=== PATIENT | female | born 1930 | race Caucasian/White ===

== ENCOUNTER 2016-08-11 12:26 | Emergency (ER) | payer MEDICARE ==
[~2016-08-11 12:26] MED LIST: ASPIRIN PO; CALTRA600D PO; CO Q-10 PO; DITROXL5 PO; EYLEA IM; FOSAMAX70 MG PO; LEVOTHYROXIN125 MCG PO; LEVOTHYROXIN150 MCG PO; LIPITOR40 PO; LOP25 PO; MAGOX4 PO; MIRALAXPKT PO; MOBIC7.5 PO; NORV5 PO; SUPER B COMP OR; SYSTANE OPH; VITAMIN B PO
[2016-08-11 12:53] LABS: BASOPHILS 0.3 %; BASOPHILS ABSOLUTE 0.02 10/3/uL (0.0-0.16); EOSINOPHILS 2.7 %; EOSINOPHILS ABSOLUTE 0.17 10/3/uL (0.0-0.53); ER CBC TAT 0 Hrs 07 Mins; HEMATOCRIT 28.2 % (36.0-48.0); HEMOGLOBIN 9.3 g/dL (12.0-16.0); IMMATURE GRANULOCYTES 0.2 %; IMMATURE GRANULOCYTES ABSOLUTE 0.01 10/3/uL (0.0-0.11); LYMPHOCYTES 16.4 %; LYMPHOCYTES ABSOLUTE 1.02 10/3/uL (0.67-4.30); MANUAL DIFF NO %; MEAN CORPUSCULAR HEMOGLOB 30.2 pg (26.0-34.0); MEAN CORPUSCULAR VOLUME 91.6 fL (80-100); MEAN PLATELET VOLUME 9.9 fL (9.2-13.0); MONOCYTES 4.2 %; MONOCYTES ABSOLUTE 0.26 10/3/uL (0.21-1.20); NEUTROPHILS 76.2 %; NEUTROPHILS ABSOLUTE 4.74 10/3/uL (2.02-8.40); PLATELET COUNT 187 10/3/uL (150-400); RBC DISTRIBUTION WIDTH 14.9 % (12.0-16.0); RED CELL COUNT 3.08 10/6/uL (4.0-5.6); WHITE BLOOD CELLS 6.2 10/3/uL (4.5-10.5)
[2016-08-11 13:00] LABS: INTERNATIONAL NORMAL RATI 2.8 UNITS (-); PARTIAL THROMBO TIME 42.8 SEC (22.5-37.2); PROTIME (NOT ORD) 29.3 SEC (12.0-14.5)
[2016-08-11 13:11] LABS: BUN (BLOOD UREA NITROGEN) 14 MG/DL (6-23); CALCIUM, SERUM 8.9 MG/DL (8.5-10.4); CHEST PAIN PROFILE TAT 0 Hrs 25 Mins; CHLORIDE, SERUM 104 MMOL/L (96-112); CO2 (CARBON DIOXIDE) 27 MMOL/L (24-34); CREATININE 0.57 MG/DL (0.55-1.02); GFR AFRICAN AMERICAN 97 ML/MIN (>=60); GFR NON AFRICAN AMERICAN 84 ML/MIN (>=60); GLUCOSE, SERUM 114 MG/DL (60-99); POTASSIUM, SERUM 4.3 MMOL/L (3.5-5.3); SODIUM, SERUM 138 MMOL/L (135-148); TROPONIN I <0.02 NG/ML (<0.05)
[2016-08-11 14:58] LABS: ASCORBIC ACID (UR NOT ORDER) 20 (NEG); BILIRUBIN, URINE NEGATIVE (NEG); ER URINALYSIS TAT 0 Hrs 08 Mins; KETONE, URINE NEGATIVE (NEG); LEUKOCYTE ESTERASE(NOT OR SMALL (NEG); NITRITE (URINE) POS (NEG); WBC (NOT ORDERED) (RFLEX) 4 (0-5)
== END 2016-08-11 15:43 | disposition home or self-care (01) ==
LOC: ER 12:26
PROVIDERS: Hospitalist
DX: I48.0 Paroxysmal atrial fibrillation (principal); R00.1 Bradycardia, unspecified; T50.905A Adverse effect of unspecified drugs, medicaments and biological substances, initial encounter; E03.9 Hypothyroidism, unspecified; Z91.14 Patient's other noncompliance with medication regimen; I10 Essential (primary) hypertension; Z88.2 Allergy status to sulfonamides; Z79.899 Other long term (current) drug therapy
CPT/HCPCS: 71020; 80048; 81001; 83735; 84484; 85025; 85610; 85730; 87077; 87086; 87186; 93005; 99285

== ENCOUNTER 2016-08-29 01:33 | Inpatient (IN) | payer MEDICARE ==
--- NOTE | ~2016-08-29 | DS ---
Discharge Summary [facility] [address] [place]. [address] NAME: SADIE SHRESTHA : 28 STATUS : DIS IN PAT#: [id number] AGE: 86 ADM/REG DATE : 08/29/16 MR#: [id number] REPORT SERV DATE: 09/05/16 DICTATED BY: DATE: REPORT STATUS : Draft TRANSCRIBED BY: MODL DATE: 09/04/16 ADMISSION DATE: 08/29/2016 DISCHARGE DATE: 09/04/2016 The patient was admitted to the [facility]. CONSULTANTS: Included Dr. Colorado of Gastroenterology and Dr. Rodriguez of Cardiology. DISCHARGE DIAGNOSES: 1. Acute blood loss anemia at admission-status post two units of packed red blood cells. 2. GI bleed due to ischemic colitis. 3. Recently diagnosed atrial fibrillation with rapid ventricular response at admission-now rate controlled. To resume anticoagulation in one week. 4. Acute congestive heart failure exacerbation, diastolic. Also, a recent diagnosis. Improved with initiation of Lasix and lisinopril. 5. Hypoxemic respiratory failure-acute, due to acute congestive heart failure exacerbation. Resolved. 6. Hypothyroidism-with recent medication noncompliance. TSH improving to 7.2 with normal free T4 presently. 7. Chronic constipation. 8. History of breast cancer in 2002. 9. Possible obstructive sleep apnea-for outpatient sleep study. 10.Demand related ischemia-no acute myocardial infarction. 11.Osteoporosis. 12.Osteoarthritis. IMAGING AND DIAGNOSTICS: 1. Portable chest x-ray, 08/29/2016, for shortness of breath shows mild vascular congestion with patchy infiltrates likely representing asymmetric edema. 2. Portable chest x-ray, 08/30/2016, shows asymmetric pulmonary edema. 3. Echocardiogram 08/30/2016, showing ejection fraction 40%, mild diastolic dysfunction, elevated right-sided heart pressures. 4. Mesenteric Doppler 09/01/2016, negative for mesenteric stenosis. 5. PA lateral chest x-ray, 09/03/2016, no acute cardiopulmonary process. PROCEDURES: Included EGD and colonoscopy on 08/31/[address] Maikel Colorado demonstrating patchy inflammation throughout the colon and cecum. Biopsies obtained with all pathology pertinent for ischemic colitis and no evidence of malignancy or viral enteritis. PERTINENT LABS: Blood gas with pH 7.45, pCO2 37, PO2 53, oxygen saturation 84% on room air. Creatinine normal at 0.5 throughout the admission. Electrolytes normal. Liver enzymes normal. LDH mildly elevated at 282. Iron 61, iron binding capacity 453, ferritin 18, B12 365, troponin initially 0.68. TSH 7.03 with free T4 1.01. BNP values ranging from 224-315, lactate 1.2. Serum protein electrophoresis is normal. Initial white blood cell count 7.2, as high as 12.3 during the admission and discharge value of 7.5. Initial hemoglobin 7.2, 9.5 at discharge. Platelet count normal. Coagulation studies with admission INR of 1.7 and Discharge Summary [facility] [address] [place]. [address] NAME: SADIE SHRESTHA : 29 STATUS : DIS IN PAT#: [id number] AGE: 86 ADM/REG DATE : 08/29/16 MR#: [id number] REPORT SERV DATE: 09/05/16 DICTATED BY: DATE: REPORT STATUS : Draft TRANSCRIBED BY: MODL DATE: 09/04/16 discharge INR of 1.4-off Coumadin currently. CMV antibodies pending at the time of discharge. Urinalysis was negative. Blood cultures x2 showed no growth. BRIEF HISTORY: For full details, please see the previously dictated history of present illness by Dilan Gibbs M.D. This is an 86-year-old white female, who presented with shortness of breath. For about a month, had been feeling weak and pale in the outpatient setting with a chief complaint of shortness of breath. She had been seen by her primary care provider, as well as bank consultant for this, with recent diagnoses of atrial fibrillation, and congestive heart failure. Also of note, her had recently and she had not been taking her medications as prescribed. She was being treated in the outpatient setting for uncontrolled hypothyroidism. In the emergency department, was noted to be newly anemic with a hemoglobin of 7.2, and heme-positive stools. She was admitted to the Hospitalist Service for further evaluation. HOSPITAL COURSE: For full details, please also reference interim summary by Dr. Eamon Osei for dates of service 08/29/2016 through 09/01/2016. The patient was admitted with acute hypoxemic respiratory failure due to acute exacerbation of diastolic dysfunction, and demand ischemia felt secondary to underlying anemia. Her symptoms improved with 2 units of packed red blood cells. She was seen and evaluated by Cardiology and Gastroenterology. She was placed on a higher dose of Cardizem which brought her rate into control. Her Coumadin was held and she underwent EGD and colonoscopy as well as mesenteric Doppler this admission. Pertinent findings included ischemic colitis by pathology. She was transferred to [address] [place] [address] on the afternoon of 09/01/2016, where she continued to do well through the weekend, with no evidence of recurrent GI bleeding or decline in hemoglobin. Gastroenterology recommended holding her Coumadin for one week before restarting-and this will be due to resume on 09/09/2016. The patient did have some recurrence of shortness of breath while on [address] [place] [address], with evidence of crackles on examination and some desaturations to 85% on room air. She also endorsed orthopnea and paroxysmal nocturnal dyspnea at that time. Two-view chest x-ray was negative, but BNP was mildly elevated and she was placed on diuretics with dramatic improvement in her symptoms. The patient is being re-evaluated today for home oxygen requirements and home oxygen will be initiated at discharge if needed. The patient will need close outpatient followup with her bank consultant, Dr. Rodriguez regarding atrial fibrillation, diastolic congestive heart failure, and multiple new medications at discharge. Coumadin is on hold until 09/09/2016 as noted, then will be resumed at 2.5 mg p.o. daily and patient will need to follow up at the [facility] on 09/15/2016 for PT and INR. Her family will follow up with primary care provider, Dr. Zachariah Roper, in 1-2 weeks and will seek a referral for an outpatient sleep study given possible sleep apnea observed during the hospitalization. The patient also will follow up with Dr. Rodriguez in 2-4 weeks. She is instructed to adhere to a 2 g sodium restricted, 2000 mL fluid restricted diet at discharge, and home health is being arranged for disease management and medication management. Discharge Summary [address] [place]. [address] NAME: SADIE SHRESTHA : 28 STATUS : DIS IN PAT#: [id number] AGE: 86 ADM/REG DATE : 08/29/16 MR#: [id number] REPORT SERV DATE: 09/05/16 DICTATED BY: DATE: REPORT STATUS : Draft TRANSCRIBED BY: ETHAN DATE: 09/04/16 DISCHARGE MEDICATIONS: Include: 1. Cardizem CD 240 mg p.o. daily. 2. Colace 100 mg p.o. twice a day. 3. Lisinopril 2.5 mg p.o. daily. 4. MiraLAX one packet p.o. daily. 5. Coumadin 2.5 mg p.o. q.a.m., resume on 09/09/2016, with PT/INR on 09/15/2016. 6. Forteo 20 mcg subcu at bedtime. 7. Keylea injections administered by Ophthalmology. 8. B complex vitamin 1 tablet p.o. daily. 9. Magnesium 1 tablet p.o. daily. 10.Vitamin D3, 1 tablet p.o. daily. 11.Probiotic 1 cap p.o. daily. 12.Potassium-1 tab p.o. daily. 13.Tylenol 500 mg p.o. daily as needed. 14.CoQ10 1 cap p.o. daily. 15.Lasix 20 mg p.o. daily. 16.Prescriptions were provided for lisinopril, Lasix, and Cardizem CD. 17. 18.Thirty five minutes was spent in completion of the discharge. LAKEISHA/ETHAN Carlos Conn M.D. / [id number] CC: Carlos Conn M.D.
--- NOTE | ~2016-08-29 | HP ---
History And Physical [facility] [address] [place]. [address] NAME: SADIE SHRESTHA : 29 STATUS : ADM IN [facility]#: [id number] AGE: 86 ADM/REG DATE : 08/29/16 MR#: [id number] REPORT SERV DATE: 08/29/16 DICTATED BY: BENIGNO LOPEZ DATE: 08/29/16 REPORT STATUS : Draft TRANSCRIBED BY: MODL DATE: 08/29/16 DATE OF ADMISSION: 08/29/2016 CHIEF COMPLAINT: An 86-year-old female, presenting with shortness of breath. HISTORY OF PRESENT ILLNESS: The patient's history was obtained through careful interview with patient and daughter, coupled with review of [facility] and [facility] medical records. The patient, for about a month now, has been feeling weak and ill. Her main complaint has been shortness of breath. But over the last few weeks, the shortness of breath has become quite severe. She describes dyspnea on exertion and in fact, she has now become just overtly short of breath and winded just trying to talk. She describes orthopnea, difficulty breathing at night. She has noticed no lower extremity edema, but has had a lot of cramping in her legs. She describes lightheadedness, feeling "trembly." She has had a cough productive of a slight sputum that she swallows. She often develops a chest discomfort and it has progressed over these last few days. It is a heavy pushing quality, 7 to 8/10 severity, without radiation, associated with shortness of breath, and may be exacerbated by exertion. She has noticed no melena, no bright red blood per rectum. She has noticed some slight discoloration in her urine with hematuria. She has had some nausea, but no vomiting. She has had a poor appetite. No abdominal pain. REVIEW OF SYSTEMS: Otherwise, a 14-point review of systems was obtained was negative. PAST MEDICAL HISTORY: 1. Atrial fibrillation, followed by Dr. Reagan Rodriguez. 2. Left bundle-branch block. 3. Hypertension. 4. Hypothyroidism. 5. Hepatitis A. 6. Right breast cancer in 2002, status post surgical resection. PAST SURGICAL HISTORY: 1. Appendectomy. 2. Right breast lumpectomy. 3. Hysterectomy. 4. Bladder lift. 5. Bilateral knee operations. ALLERGIES: SULFA. History And Physical [facility] [id number] [place]. [address] NAME: SADIE SHRESTHA : 29 STATUS : ADM IN PAT#: [id number] AGE: 86 ADM/REG DATE : 08/29/16 MR#: [id number] REPORT SERV DATE: 08/29/16 DICTATED BY: BENIGNO LOPEZ DATE: 08/29/16 REPORT STATUS : Draft TRANSCRIBED BY: ETHAN DATE: 08/29/16 SOCIAL HISTORY: Quit smoking. Drinks occasional alcohol. She became a just six weeks ago when her of 66 years , and has been suffering from quite a bit of grief. The patient lives in [place], [place]. Has supportive daughter at bedside. FAMILY HISTORY: Mother with heart disease. CURRENT MEDICATIONS: Include, Tylenol, vitamin B complex, diltiazem extended release 120 mg every morning, Synthroid 75 mcg p.o. daily, Forteo eye drops, magnesium, vitamin D, probiotics, potassium, coenzyme Q10, and Coumadin 2.5 mg p.o. daily. PHYSICAL EXAMINATION: VITAL SIGNS: Temperature 97.8, pulse 129, blood pressure 139/81, respiratory rate 18, and O2 saturation 81% on room air. GENERAL: An ill-appearing female, in evidence of distress secondary to shortness of breath. HEENT: Pupils are equal, round, and reactive to light. The patient has significant conjunctival pallor. No scleral icterus. Nares are patent. Oropharynx is clear of obstruction. Moist mucous membranes. NECK: Trachea midline. No thyromegaly. LYMPH: No cervical lymphadenopathy. No supraclavicular lymphadenopathy. RESPIRATORY: Diffuse pulmonary rales, "wet" on exam. No wheezes. No focal egophony. The patient has an extremely labored respiratory effort, heaving with her abdomen with each breath and when she attempts to answer questions during history, she will have to even at times gasp for breath. CARDIOVASCULAR: Tachycardic but regular. No murmurs, rubs, or gallops. No current extremity edema is appreciated. ABDOMEN: Soft, nontender, nondistended. Normal bowel sounds auscultated throughout. No hepatosplenomegaly. DERMATOLOGICAL: Warm and dry extremities. No pallor. No cyanosis. PSYCHIATRIC: Normal affect. Good mood. Alert and oriented x3. LABORATORY DATA: White blood cell count 7, hemoglobin 7, hematocrit 22 from baseline hematocrit of 40, platelets 220. Sodium 134, potassium 3.9, chloride 101, bicarb 32, BUN 21, creatinine 0.52, glucose 121. Brain natriuretic peptide 314. Troponin 0.60. ABG demonstrates pH 7.45, a PaCO2 of 37, a PaO2 of 53, and a bicarb of 25. STUDIES: 1. Chest x-ray by my own evaluation, shows diffuse pulmonary edema. There may be an increased amount in the right upper lung. 2. EKG by my own evaluation, shows sinus tachycardia, left bundle-branch block. ASSESSMENT AND PLAN: 1. Hypoxic respiratory failure with quite a bit of respiratory distress. We will admit to the IMCU. Provide supportive care. 2. Congestive heart failure exacerbation. New diagnosis. Place on IV diuretic. Check an echocardiogram. History And Physical [address] [address] NAME: SADIE SHRESTHA : 28 STATUS : ADM IN [facility]#: [id number] AGE: 86 ADM/REG DATE : 08/29/16 MR#: [id number] REPORT SERV DATE: 08/29/16 DICTATED BY: BENIGNO LOPEZ DATE: 08/29/16 REPORT STATUS : Draft TRANSCRIBED BY: ETHAN DATE: 08/29/16 3. Elevated troponin, chest pain. Non ST-elevation myocardial infarction. Yet we will not be starting a heparin drip secondary to severe anemia and possible bleeding. We will need to check a PT, PTT, INR as the patient was just switched from Xarelto to Coumadin recently. We will obtain a Cardiology consult with Dr. Rodriguez and follow troponin closely. 4. Symptomatic anemia. We will transfuse blood. Check Hemoccult. Check reticulocyte count. Obtain an empiric GI consult with Dr. Linnea Larose, holding warfarin and heparin secondary to bleeding possibility. 5. Paroxysmal atrial fibrillation, now in sinus tachycardia. We will provide supportive care with treatment of heart failure and anemia, and monitor patient's tachycardia closely. 6. Grief. The patient's of 66 years just six weeks ago. LUISL/ROSAL Benigno Lopez M.D. / [id number] CC: Nubia Hidalgo M.D. Fred Duhon, M.D.
--- NOTE | ~2016-08-29 | DS ---
Discharge Summary [facility] [address] [place]. [address] NAME: SADIE SHRESTHA : 28 STATUS : ADM IN [facility]#: [id number] AGE: 86 ADM/REG DATE : 08/29/16 MR#: [id number] REPORT SERV DATE: 09/01/16 DICTATED BY: Lakeshia OSEI DATE: 09/01/16 REPORT STATUS : Draft TRANSCRIBED BY: ETHAN DATE: 09/01/16 ADMISSION DATE: 08/29/2016 DISCHARGE DATE: INTERIM SUMMARY DATE: 09/01/2016. DIAGNOSES AT THE TIME OF INTERIM SUMMARY: Hypoxic respiratory failure secondary to acute diastolic heart failure, resolving; demand ischemia secondary to above; anemia, acute on chronic; osteoporosis; hypertension; osteoarthritis; hypothyroidism; cecal mass, seen on endoscopy. CONSULTS: Gastroenterology and Cardiology. PROCEDURES: EGD and colonoscopy. BRIEF HOSPITAL COURSE: An 86-year-old female patient was admitted with respiratory failure secondary to diastolic dysfunction and demand ischemia felt secondary to underlying anemia. The patient's symptoms markedly improved with blood transfusion. Seen and evaluated by Cardiology and Gastroenterology. The patient did have an echocardiogram that showed intact left ventricular function, mild diastolic issues, and no valvular abnormalities. The patient did undergo endoscopy. Upper scope was normal. Lower scope did show some ulcerations at the hepatic flexure and cecum as well as a cecal mass of uncertain etiology. Biopsies were taken and are currently pending. She did have a mesenteric ultrasound to complete her workup that was negative. At the present time, the patient is clinically improving from a respiratory standpoint. She has had no further chest pain. She continues on a full liquid diet and medical therapy while we await the results of her pathology. The patient's hospitalist care will be provided by another member of the team starting 09/02/2016 with ongoing input from Gastroenterology and Cardiology. The patient is currently not a candidate for anticoagulation until we have a better idea of the management of her cecal abnormality and subsequent future bleeding risk. We greatly appreciate ongoing input from Cardiology and Gastroenterology. PAUL/ETHAN Lakeshia Osei M.D. / [id number] CC: Lakeshia Osei M.D. UNKNOWN
--- NOTE | ~2016-08-29 | CN ---
Consultation Report [facility] [address] [place]. [address] NAME: SADIE BOO : 28 STATUS : ADM IN [facility]#: [id number] AGE: 86 ADM/REG DATE : 08/29/16 MR#: [id number] REPORT SERV DATE: 08/30/16 DICTATED BY: TRUDI PHILLIPS DATE: 08/29/16 REPORT STATUS : Draft TRANSCRIBED BY: MODL DATE: 08/29/16 CARDIOLOGY CONSULTATION DATE OF CONSULTATION: 08/29/2016 REASON FOR CONSULTATION: Elevated cardiac biomarkers and tachycardia in an 86-year-old woman with a history of paroxysmal atrial fibrillation. HISTORY OF PRESENT ILLNESS: Ms. Boo is a pleasant 86-year-old woman who was in her usual state of health until several days prior to admission. Of note, the patient recently suffered the loss of her . She has been having between one and two weeks of insidious onset of progressive exertional dyspnea, orthopnea, and paroxysmal nocturnal dyspnea. The patient also describes extreme fatigue. She has a longer history of exertional substernal chest pain. The patient reports a chronic anemia, but apparently has never required blood transfusion in the past. Her shortness of breath and fatigue became severe enough to prompt the patient to present to the emergency room last night. She was found to be severely anemic, and also to have x-ray findings consistent with congestive heart failure. In addition, the patient's troponin was found to be elevated at 0.68. The patient has been admitted to the intermediate care unit for transfusion, treatment of respiratory failure, and workup for suspected GI bleeding. At this time, the patient remains mildly short of breath, though she denies chest pain. She reports that she feels somewhat improved after having received her first unit of packed red blood cells. PAST MEDICAL HISTORY: 1. Paroxysmal atrial fibrillation. 2. Hypothyroidism. 3. Osteoarthritis. 4. Hypertension. PAST SURGICAL HISTORY: The patient denies any previous cardiac surgeries. FAMILY HISTORY: Noncontributory. SOCIAL HISTORY: The patient has no significant history of tobacco, alcohol, or drug use. She is a recent as noted above. ALLERGIES: THE PATIENT HAS ALLERGIES TO SULFA DRUGS WITH AN UNKNOWN REACTION WHICH HAD OCCURRED MANY YEARS AGO. HOME MEDICATIONS: 1. Acetaminophen 500 mg p.o. q.6 hours as needed for pain. 2. B complex vitamin tablet 1 daily. 3. Diltiazem 120 mg p.o. q.a.m. of extended release. Consultation Report [facility] [address]. [address] NAME: SADIE BOO : 28 STATUS : ADM IN PAT#: [id number] AGE: 86 ADM/REG DATE : 08/29/16 MR#: [id number] REPORT SERV DATE: 08/30/16 DICTATED BY: TRUDI PHILLIPS DATE: 08/29/16 REPORT STATUS : Draft TRANSCRIBED BY: ETHAN DATE: 08/29/16 4. Synthroid 75 mcg p.o. q.a.m. 5. Forteo pen 20 mcg subcutaneously at bedtime. 6. Eylea ophthalmologic 2 mg/0.05 mL administered by the patient's waste management engineer. 7. Hpuc-dxd-ewdhkyx magnesium supplement. 8. Vitamin D vgbo-qqt-brazjnm supplement one daily. 9. Probiotic supplement one capsule daily. 10.Potassium supplement one capsule daily. 11.Coenzyme Q10 one capsule daily. 12.Coumadin 2.5 mg p.o. q.a.m. - of note, the patient recently was transition from Xarelto to Coumadin for reasons of cost. REVIEW OF SYSTEMS: A complete 12-system review was performed. This is noncontributory except for the pertinent positives and negatives noted in the history of present illness above. PHYSICAL EXAMINATION: VITAL SIGNS: Temperature is 97.8 degrees Fahrenheit, blood pressure is 114/70, heart rate is currently variable between 115 and 130 beats per minute, respirations 18, and oxygen saturation is 96% on 2 L nasal cannula. CONSTITUTIONAL: The patient is a frail elderly and ill-appearing white woman, who is mildly tachypneic, but otherwise in no acute distress. The patient speaks in full sentences. EYES: PERRL, EOMI, clear conjunctiva. HEAD/MNT: NCAT with moist mucous membranes and grossly normal hard and soft palate. NECK: Supple with no obvious thyromegaly or lymphadenopathy CARDIOVASCULAR: There is a tachycardia with a regular rhythm. There is a normal S1 and a paradoxically split second heart sound. The jugular venous pressure is significantly elevated to between 12 and 15 cm. PULMONARY: There are bilateral rales noted in the lung bases and approximately one-quarter of the way up the thorax bilaterally. There is no dullness to percussion noted. No wheezing is noted at this time. ABDOMINAL: Soft, non-tender, non-distended with no hepatosplenomegaly noted. EXTREMITIES: No clubbing or cyanosis. There is 1+ edema at the ankles bilaterally. MUSCULOSKELETAL: Grossly normal strength and range of motion in all extremities INTEGUMENTARY: Skin appears intact with no bruises, wounds or active lesions noted NEURO/PSYC: Alert and oriented x3, with no dysarthria, facial droop or lateralizing weakness noted. IMAGIN-lead EKG: The patient's admission 12-lead EKG dated 08/29/2016 at 0021 hours demonstrates sinus tachycardia with a left bundle-branch block pattern and secondary ST/T- wave changes. Chest x-ray: The chest x-ray shows moderate pulmonary edema consistent with acute congestive heart failure. Consultation Report [address] [address] NAME: SADIE BOO : 28 STATUS : ADM IN [facility]#: [id number] AGE: 86 ADM/REG DATE : 08/29/16 MR#: [id number] REPORT SERV DATE: 08/30/16 DICTATED BY: TRUDI PHILLIPS DATE: 08/29/16 REPORT STATUS : Draft TRANSCRIBED BY: ETHAN DATE: 08/29/16 LABORATORY DATA: Sodium is 134, potassium 3.9, chloride is 101, BUN is 21, creatinine is 0.52, glucose is 121, and calcium 9.1. Cell count showed a white blood cell count of 7.0, hemoglobin 7.2, hematocrit 23, and platelets 220. The patient's first troponin is 0.60 with a repeat troponin of 0.68. B-type natriuretic peptide is elevated at 315. TSH is elevated at 11.0. D-dimer is normal at 0.4. ASSESSMENT AND PLAN: 1. Elevated troponin: This is most likely demand ischemia/WHO type 2 myocardial infarction secondary to the patient's severe anemia and sinus tachycardia. At this time, I would recommend only transfusion. Given the patient's likely acute gastrointestinal bleed, I would recommend against anticoagulation or aspirin at this time. The patient is not having chest pain at this time. We will trend the patient's cardiac biomarkers. We will consider an invasive or noninvasive workup after the patient's gastrointestinal bleeding has been stabilized. 2. Acute congestive heart failure: The patient's most recent echocardiogram from 12/2015 shows normal left ventricular systolic function with an ejection fraction of 55%. The patient does have clinical evidence of congestive heart failure. A repeat echocardiogram will be obtained. If the patient has significantly decreased left ventricular systolic function, we will again consider coronary angiography once the patient's gastrointestinal bleed has been stabilized. The patient will receive Lasix 20 mg IV after each unit of transfused packed red blood cells. She has been started on a Bumex 1 mg IV q.8 hours. We will follow I's and O's and daily weights, and consider decreasing Bumex dose depending on her response. 3. Paroxysmal atrial fibrillation: The patient is presently in normal sinus rhythm. We will consider esmolol or Cardizem if necessary to control a rapid ventricular response. The patient's heart rate will most likely decrease with transfusion. 4. Hypertension - controlled: The patient will continue her current regimen. The Cardiology Service will continue to follow the patient closely during this hospitalization. Thank you for allowing me to participate in the care of Ms. Boo. [facility]/MODL Trudi Phillips MD / [id number] CC: Lakeshia Osei M.D. UNKNOWN
--- NOTE | ~2016-08-29 | EGD ---
EGD REPORT [facility] [address] [address] NAME: ROMELIA BOO : [birth year] STATUS : ADM IN PAT#: [id number] AGE: 86 ADM/REG DATE : 08/29/16 MR#: [id number] REPORT SERV DATE: 08/31/16 DICTATED BY: MAIKEL DAVIDSON DATE: 08/31/16 REPORT STATUS : Draft TRANSCRIBED BY: [employer] DATE: 08/31/16 [facility] Patient Name: Romelia Boo Date of : 1930 Attending MD: MAIKEL DAVIDSON MD Procedure Date No Time: 08/31/2016 Procedure: Colonoscopy Indications: Anemia Medicines: Monitored Anesthesia Care Complications: No immediate complications. Estimated blood loss: Minimal. Procedure: Pre-Anesthesia Assessment: - ASA Grade Assessment: IV - A patient with severe systemic disease that is a constant threat to life. After I obtained informed consent, the scope was passed under direct vision. Throughout the procedure, the patient's blood pressure, pulse, and oxygen saturations were monitored continuously. The CF [id number] was introduced through the anus and advanced to the cecum, identified by appendiceal orifice and ileocecal valve. The colonoscopy was performed without difficulty. The patient tolerated the procedure well. The quality of the bowel preparation was fair. Findings: The perianal exam was abnormal. Findings include non-thrombosed external hemorrhoids. Patchy severe inflammation characterized by congestion (edema), erosions, erythema and deep ulcerations was found at the hepatic flexure, in the ascending colon and in the cecum. Biopsies were taken with a cold forceps for histology. Estimated blood loss was minimal. A polypoid large mass was found in the cecum. Oozing was present. Biopsies were taken with a cold forceps for histology. Estimated blood loss was minimal. The exam was otherwise without abnormality on direct and retroflexion views. Impression: - Non-thrombosed external hemorrhoids found on perianal exam. - Patchy severe inflammation was found at the hepatic flexure, in the ascending colon and in the cecum. Biopsied. Rule out ichemia and viral infection (CMV)? \E\t - Rule out malignancy, tumor in the cecum. Biopsied. Biopsied. - The examination was otherwise normal on direct and EGD REPORT [address] [address] NAME: ROMELIA BOO : 28 STATUS : ADM IN [facility]#: [id number] AGE: 86 ADM/REG DATE : 08/29/16 MR#: [id number] REPORT SERV DATE: 08/31/16 DICTATED BY: MAIKEL DAVIDSON DATE: 08/31/16 REPORT STATUS : Draft TRANSCRIBED BY: [employer] DATE: 08/31/16 retroflexion views. Recommendation: - Return patient to [facility] for ongoing care. - Await pathology results. Procedure Code(s): --- Professional --- 59044, Colonoscopy, flexible, proximal to splenic flexure; with biopsy, single or multiple Diagnosis Code(s): --- Professional --- K64.4, Residual hemorrhoidal skin tags K52.9, Noninfective gastroenteritis and colitis, unspecified D49.0, Neoplasm of unspecified behavior of digestive system D64.9, Anemia, unspecified CPT copyright 2013 [employer]. All rights reserved. The codes documented in this report are preliminary and upon chief psychology review may be revised to meet current compliance requirements. Maikel Davidson MD MAIKEL DAVIDSON MD 08/31/2016 12:57 PM This report has been signed electronically. Number of Addenda: 0 Note Initiated On: 08/31/2016 12:00 PM Scope Withdrawal Time 0 hours 0 minutes 0 seconds [address] [id number]
--- NOTE | ~2016-08-29 | CN ---
Consultation Report [facility] [address] [place]. [address] NAME: ROMELIA BOO : [birth year] STATUS : ADM IN PAT#: [id number] AGE: 86 ADM/REG DATE : 08/29/16 MR#: [id number] REPORT SERV DATE: 08/29/16 DICTATED BY: HAKEEM PRAKASH DATE: 08/29/16 REPORT STATUS : Draft TRANSCRIBED BY: MOD[employer]ir[employer] DATE: 08/29/16 GI CONSULTATION DATE OF CONSULTATION: 08/29/2016 REASON FOR CONSULTATION: Evaluation and management of anemia. HISTORY OF PRESENT ILLNESS: Mrs. Romelia Boo is a pleasant 86-year-old female patient, who has been seen by Dr. Cruz Mora in the past, who presented to [facility] on 08/28/2016 with a chief complaint of dyspnea, severe fatigue, as well as positional dizziness. She had some complaints of chest pressure. She reports that over the last few months, she has had worsening fatigue on exertion as well as dyspnea when lying flat, and she states that she has let her health go over the last year as she had been taking care of her who has recently. She states that over the last six weeks, things have progressively worsened. She has had some mild nausea, but no emesis. She denies abdominal pain. She denies any melena or hematochezia, but then states that she does not typically observe her bowel movements. She has not had any weight loss. She admits to some very mild dysphagia type symptoms, but no odynophagia. She states that she has been on Xarelto for paroxysmal atrial fibrillation, but that was stopped two to four weeks ago secondary to cost and she was started on Coumadin. She had labs done on 08/11/2016. She had a hemoglobin of 9.3. On admission, her hemoglobin was found to be 7.2. She is currently being transfused with packed red blood cells. Her last colonoscopy was done in 02/2008. Findings were internal hemorrhoids; sigmoid colon diverticulosis; polyps in the cecum, ascending and sigmoid colon, resected and evaluated, some were hyperplastic as well as tubular adenomatous type. She has not had followup colonoscopy since that time. She states that her weight is stable. Presently, she had elevated troponin on admission. Cardiology has seen the patient, evaluated the patient, and defers workup until GI workup has been completed. Suspect that her rise in troponin is secondary to demand ischemia. Presently, she states she is feeling better status post packed red blood cells. No repeat hemoglobin has been obtained. I have discussed with the patient that she will need to undergo EGD as well as colonoscopy. These will be tentatively planned for 08/31/2016. She has an echo pending. INR needs to come down somewhat, and then we will proceed with endoscopy. I have discussed the risks, benefits, alternatives, and complications with her to include, but not limited to risk of bleeding, perforation, infection, reaction to medications, as well as cardiac and pulmonary side effects. She is agreeable to proceed. PAST MEDICAL HISTORY: Positive for colon polyps; internal hemorrhoids; anemia; paroxysmal atrial fibrillation, on Coumadin; macular degeneration; hypertension; osteoporosis; degenerative disk disease; and hypothyroidism; left bundle-branch block. PAST SURGICAL HISTORY: Breast lumpectomy, hysterectomy, bladder tacking, appendectomy, tonsillectomy, bilateral total knee. FAMILY HISTORY: Noncontributory from a GI standpoint. Consultation Report [address] [place]. [address] NAME: ROMELIA BOO : 28 STATUS : ADM IN [facility]#: [id number] AGE: 86 ADM/REG DATE : 08/29/16 MR#: [id number] REPORT SERV DATE: 08/29/16 DICTATED BY: HAKEEM PRAKASH DATE: 08/29/16 REPORT STATUS : Draft TRANSCRIBED BY: ETHAN DATE: 08/29/16 SOCIAL HISTORY: Recently . Denies alcohol, tobacco, or illicits. ALLERGIES: SULFA. HOME MEDICATIONS: Tylenol, vitamin B complex, Cartia, Synthroid, Forteo, Eylea, magnesium, vitamin D3, probiotic, potassium, CoQ10, Coumadin. REVIEW OF SYSTEMS: A 10-point review of systems has been obtained with pertinent positives being addressed in the history of present illness. PERTINENT LABORATORY DATA: Sodium 135, potassium 3.5, BUN is 17, creatinine is 0.58. White count 7.2, hemoglobin 7.2 with a hematocrit of 22.7, platelet count of 220, retic count 5.6. Normal LFTs with a total bilirubin of 0.7, alkaline phosphatase 88, ALT 13, AST 19. Chest x ray with mild vascular congestion with patchy infiltrates, question asymmetric interstitial edema. PHYSICAL EXAMINATION: VITAL SIGNS: Temperature is 97.8, pulse of 129, respirations 28, blood pressure 136/82. NEURO: Reveals an alert female, resting in bed with no obvious focal deficits. She awakens to name. GENERAL: She is cooperative. She is in no acute distress. She is oriented x3. She has some very mild shortness of breath on conversation. HEAD, EARS, EYES, NOSE, AND THROAT: Anicteric. Pupils equal, round, and reactive to light and accommodation. Normocephalic and atraumatic. NECK: No JVD. No palpable nodes. Supple. LUNGS: Decreased throughout with crackles bilaterally in the bases. CARDIOVASCULAR SYSTEM: Irregular rate and rhythm. ABDOMEN: Soft and nontender with active bowel sounds in all four quadrants. No organomegaly appreciated. No rebound or guarding. SKIN: Warm, dry, and intact. EXTREMITIES: No edema. Normal distal pulses. ASSESSMENT: 1. Acute blood loss anemia/symptomatic. 2. Elevated troponin, likely demand ischemia. Cardiology following. No immediate plans for intervention. 3. Paroxysmal atrial fibrillation, on Coumadin, previously Xarelto. 4. Hypoxic respiratory failure. 5. Congestive heart failure with exacerbation. PLAN: 1. Regular diet today. 2. Clear liquid diet beginning 08/30/2016. Consultation Report [address] [place]. [address] NAME: ROMELIA BOO : 28 STATUS : ADM IN [facility]#: [id number] AGE: 86 ADM/REG DATE : 08/29/16 MR#: [id number] REPORT SERV DATE: 08/29/16 DICTATED BY: HAKEEM PRAKASH DATE: 08/29/16 REPORT STATUS : Draft TRANSCRIBED BY: MODShiraz DATE: 08/29/16 3. She will need EGD and colonoscopy on , 08/31/2016, after stabilization. 4. Follow up INR. 5. We will begin low-dose laxatives. MAGEN/ETHAN SENDY Zhang / [phone] CC: Lakeshia Osei M.D.
--- NOTE | ~2016-08-29 | EGD ---
EGD REPORT [facility] [address] [address] NAME: ROMELIA BOO : 28 STATUS : ADM IN PAT#: [id number] AGE: 86 ADM/REG DATE : 08/29/16 MR#: [id number] REPORT SERV DATE: 08/31/16 DICTATED BY: MAIKEL DAVIDSON DATE: 08/31/16 REPORT STATUS : Draft [facility]ANSCRIBED BY: [facility] DATE: 08/31/16 [facility] Patient Name: Romelia Boo Date of : 1930 Attending MD: MAIKEL DAVIDSON MD Procedure Date No Time: 08/31/2016 Procedure: Upper GI endoscopy Indications: Anemia Medicines: Monitored Anesthesia Care Complications: No immediate complications. Estimated blood loss: None. Procedure: Pre-Anesthesia Assessment: - ASA Grade Assessment: IV - A patient with severe systemic disease that is a constant threat to life. After obtaining informed consent, the endoscope was passed under direct vision. Throughout the procedure, the patient's blood pressure, pulse, and oxygen saturations were monitored continuously. The GIF [id number] was introduced through the mouth, and advanced to the second part of duodenum. The upper GI endoscopy was accomplished without difficulty. The patient tolerated the procedure well. Findings: No gross lesions were noted in the entire esophagus. The entire examined stomach was normal. The examined duodenum was normal. The cardia and gastric fundus were normal on retroflexion. Impression: - Unremarkable examination with no suggestion of upper GI blood loss Recommendation: - Perform a colonoscopy today. Procedure Code(s): --- Professional --- 38456, Esophagogastroduodenoscopy, flexible, transoral; diagnostic, including collection of specimen(s) by brushing or washing, when performed (separate procedure) Diagnosis Code(s): --- Professional --- D64.9, Anemia, unspecified CPT copyright 2013 [employer]. All rights reserved. The codes documented in this report are preliminary and upon loftsman review may EGD REPORT [facility] [address] [place]. [address] NAME: ROMELIA BOO : [birth year] STATUS : ADM IN [facility]#: [id number] AGE: 86 ADM/REG DATE : 08/29/16 MR#: [id number] REPORT SERV DATE: 08/31/16 DICTATED BY: MAIKEL DAVIDSON DATE: 08/31/16 REPORT STATUS : Draft TRANSCRIBED BY: [employer] DATE: 08/31/16 be revised to meet current compliance requirements. Maikel Davidson MD MAIKEL DAVIDSON MD 08/31/2016 12:22 PM This report has been signed electronically. Number of Addenda: 0 Note Initiated On: 08/31/2016 12:01 PM Scope Withdrawal Time 0 hours 0 minutes 0 seconds [address] [place] [address]
[2016-08-29 01:13] LABS: BASOPHILS 0.4 %; BASOPHILS ABSOLUTE 0.03 10/3/uL (0.0-0.16); EOSINOPHILS 1.6 %; EOSINOPHILS ABSOLUTE 0.11 10/3/uL (0.0-0.53); ER CBC TAT 0 Hrs 08 Mins; IMMATURE GRANULOCYTES 0.1 %; IMMATURE GRANULOCYTES ABSOLUTE 0.01 10/3/uL (0.0-0.11); LYMPHOCYTES 13.6 %; LYMPHOCYTES ABSOLUTE 0.95 10/3/uL (0.67-4.30); MEAN CORPUS HGB CONC 31.7 g/dL (32.0-36.0); MEAN CORPUSCULAR HEMOGLOB 29.8 pg (26.0-34.0); MEAN CORPUSCULAR VOLUME 93.8 fL (80-100); MEAN PLATELET VOLUME 9.6 fL (9.2-13.0); MONOCYTES ABSOLUTE 0.56 10/3/uL (0.21-1.20); NEUTROPHILS 76.3 %; NEUTROPHILS ABSOLUTE 5.32 10/3/uL (2.02-8.40); PLATELET COUNT 220 10/3/uL (150-400); RBC DISTRIBUTION WIDTH 16.5 % (12.0-16.0)
[2016-08-29 01:14] LABS: HEMATOCRIT 22.7 % (36.0-48.0); HEMOGLOBIN 7.2 g/dL (12.0-16.0); MANUAL DIFF NO %; RED CELL COUNT 2.42 10/6/uL (4.0-5.6)
[2016-08-29 01:30] LABS: ALBUMIN 3.3 G/DL (3.5-5.0); CALCIUM, SERUM 9.1 MG/DL (8.5-10.4); CHLORIDE, SERUM 101 MMOL/L (96-112); CREATININE 0.52 MG/DL (0.55-1.02); GFR AFRICAN AMERICAN 100 ML/MIN (>=60); GFR NON AFRICAN AMERICAN 86 ML/MIN (>=60); GLUCOSE, SERUM 121 MG/DL (60-99); POTASSIUM, SERUM 3.9 MMOL/L (3.5-5.3); SGOT(AST) 16 U/L (5-40); SGPT(ALT) 13 U/L (5-65); SODIUM, SERUM 134 MMOL/L (135-148); TOTAL BILIRUBIN 0.7 MG/DL (0-1.2); TOTAL PROTEIN 6.7 G/DL (6.0-8.5)
[2016-08-29 01:31] LABS: ALKALINE PHOSPHATASE 87 U/L (45-117); BUN (BLOOD UREA NITROGEN) 21 MG/DL (6-23); CO2 (CARBON DIOXIDE) 32 MMOL/L (24-34); GLOBULIN 3.4 G/DL (2.5-4.1)
[2016-08-29 01:42] LABS: BE (BASE EXCESS) 0.9 MEQ/L (0 +/- 2.5); CARBOXYHEMOGLOBIN 2.4 % (0-3); HEMOBLOGIN CONTENT 7.5 G/DL (12-16); INSTRUMENT SERIAL # 8087; METHEMOGLOBIN 0.3 % (0-3); O2 CONTENT 8.7 VOL% (18-24); PCO2 (CO2 TENSION) 37 MMHG (35-45); PO2 (O2 TENSION) 53 MMHG (79-93); SAMPLE Arterial; pH 7.45 (7.37-7.43)
[2016-08-29] MEDS ORDERED: CARTIA XT120 MG/24 PO (04:34)
[2016-08-29] MEDS ORDERED: C5 PO (04:35)
[2016-08-29] MEDS ORDERED: SYN075 PO (04:37)
[2016-08-29] MEDS ORDERED: FORTEO SC (04:38)
[2016-08-29] MEDS ORDERED: EYLEA OPH (04:40)
[2016-08-29] MEDS ORDERED: CO Q-10100 MG PO (04:41)
[2016-08-29] MEDS ORDERED: MAGNESIUM OTC PO (04:41)
[2016-08-29] MEDS ORDERED: VITAMIN D3 OTC PO (04:41)
[2016-08-29] MEDS ORDERED: VITAMIN B PO (04:41)
[2016-08-29] MEDS ORDERED: ACET500CAP PO (04:42)
[2016-08-29] MEDS ORDERED: POTASSIUM OTC PO (04:42)
[2016-08-29] MEDS ORDERED: PROBIOTIC OTC PO (04:42)
[2016-08-29] MEDS ORDERED: CO Q-10 OTC PO (04:43)
[2016-08-29 09:34] LABS: BASOPHILS 0.4 %; BASOPHILS ABSOLUTE 0.03 10/3/uL (0.0-0.16); EOSINOPHILS 2.1 %; EOSINOPHILS ABSOLUTE 0.15 10/3/uL (0.0-0.53); HEMATOCRIT 26.3 % (36.0-48.0); HEMOGLOBIN 8.6 g/dL (12.0-16.0); IMMATURE GRANULOCYTES 0.3 %; IMMATURE GRANULOCYTES ABSOLUTE 0.02 10/3/uL (0.0-0.11); LYMPHOCYTES 14.2 %; LYMPHOCYTES ABSOLUTE 1.02 10/3/uL (0.67-4.30); MANUAL DIFF NO %; MEAN CORPUS HGB CONC 32.7 g/dL (32.0-36.0); MEAN CORPUSCULAR HEMOGLOB 30.1 pg (26.0-34.0); MEAN PLATELET VOLUME 9.2 fL (9.2-13.0); MONOCYTES 8.4 %; NEUTROPHILS 74.6 %; NEUTROPHILS ABSOLUTE 5.36 10/3/uL (2.02-8.40); PLATELET COUNT 199 10/3/uL (150-400); RBC DISTRIBUTION WIDTH 16.6 % (12.0-16.0); RED CELL COUNT 2.86 10/6/uL (4.0-5.6); RETICULOCYTE COUNT 5.6 % (0.5-2.5); WHITE BLOOD CELLS 7.2 10/3/uL (4.5-10.5)
[2016-08-29 09:41] LABS: INTERNATIONAL NORMAL RATI 1.7 UNITS (-); PARTIAL THROMBO TIME 37.6 SEC (22.5-37.2)
[2016-08-29 09:57] LABS: ALBUMIN 3.4 G/DL (3.5-5.0); ALKALINE PHOSPHATASE 88 U/L (45-117); CALCIUM, SERUM 8.7 MG/DL (8.5-10.4); CHLORIDE, SERUM 99 MMOL/L (96-112); CO2 (CARBON DIOXIDE) 33 MMOL/L (24-34); CREATININE 0.58 MG/DL (0.55-1.02); GFR AFRICAN AMERICAN 96 ML/MIN (>=60); GFR NON AFRICAN AMERICAN 83 ML/MIN (>=60); GLOBULIN 3.4 G/DL (2.5-4.1); GLUCOSE, SERUM 108 MG/DL (60-99); POTASSIUM, SERUM 3.5 MMOL/L (3.5-5.3); SGOT(AST) 19 U/L (5-40); SGPT(ALT) 13 U/L (5-65); SODIUM, SERUM 135 MMOL/L (135-148); TOTAL PROTEIN 6.8 G/DL (6.0-8.5)
[2016-08-29 09:58] LABS: BUN (BLOOD UREA NITROGEN) 17 MG/DL (6-23); TOTAL BILIRUBIN 1.2 MG/DL (0-1.2); TROPONIN I 0.68 NG/ML (<0.05)
[2016-08-29 10:34] LABS: PROCALCITONIN <0.05 ng/mL (<0.5)
[2016-08-29 13:00] LABS: FERRITIN 18 NG/ML (8-252); IRON BINDING CAPACITY 453 MCG/DL (225-410); IRON, SERUM 61 MCG/DL (35-150)
[2016-08-29 13:19] LABS: T PROTEIN (ELECT)(NOT OR 6.2 G/DL (6.0-8.5)
[2016-08-30 06:29] LABS: BASOPHILS 0.3 %; BASOPHILS ABSOLUTE 0.02 10/3/uL (0.0-0.16); EOSINOPHILS 3.3 %; EOSINOPHILS ABSOLUTE 0.21 10/3/uL (0.0-0.53); HEMATOCRIT 26.5 % (36.0-48.0); HEMOGLOBIN 8.6 g/dL (12.0-16.0); IMMATURE GRANULOCYTES 0.2 %; IMMATURE GRANULOCYTES ABSOLUTE 0.01 10/3/uL (0.0-0.11); MEAN CORPUS HGB CONC 32.5 g/dL (32.0-36.0); MEAN CORPUSCULAR HEMOGLOB 29.7 pg (26.0-34.0); MEAN CORPUSCULAR VOLUME 91.4 fL (80-100); MEAN PLATELET VOLUME 9.7 fL (9.2-13.0); MONOCYTES 9.3 %; NEUTROPHILS 72.9 %; NEUTROPHILS ABSOLUTE 4.68 10/3/uL (2.02-8.40); PLATELET COUNT 191 10/3/uL (150-400); RBC DISTRIBUTION WIDTH 16.8 % (12.0-16.0); WHITE BLOOD CELLS 6.4 10/3/uL (4.5-10.5)
[2016-08-30 06:30] LABS: MANUAL DIFF NO %
[2016-08-30 06:34] LABS: INTERNATIONAL NORMAL RATI 1.7 UNITS (-); PROTIME (NOT ORD) 19.9 SEC (12.0-14.5)
[2016-08-30 06:42] LABS: BUN (BLOOD UREA NITROGEN) 18 MG/DL (6-23); CALCIUM, SERUM 8.5 MG/DL (8.5-10.4); CHLORIDE, SERUM 99 MMOL/L (96-112); CO2 (CARBON DIOXIDE) 33 MMOL/L (24-34); CREATININE 0.58 MG/DL (0.55-1.02); GFR AFRICAN AMERICAN 96 ML/MIN (>=60); GFR NON AFRICAN AMERICAN 83 ML/MIN (>=60); GLUCOSE, SERUM 107 MG/DL (60-99); POTASSIUM, SERUM 3.3 MMOL/L (3.5-5.3); SODIUM, SERUM 140 MMOL/L (135-148)
[2016-08-30 11:34] LABS: A/G 1.43 RATIO (0.9-2.10); ALB RELATIVE % 58.9 % (60.0-89.0); ALBUMIN (ELECTRO) 3.65 GM/DL (3.2-5.5); ALPHA 1 (ELECTRO) 0.25 GM/DL (0.1-0.4); ALPHA 1 RELAT % (NOT ORD) 4.1 % (1.0-4.0); ALPHA 2 (ELECTRO) 0.79 GM/DL (0.5-1.10); ALPHA 2 RELAT % 12.8 % (4.5-26.0); BETA GLOBULIN (SPE) 0.82 GM/DL (0.60-1.30); BETA RELATIVE % 13.2 % (9.0-22.0); GAMMA GLOBULIN (SPE) 0.68 G/DL (0.70-1.60)
[2016-08-30 13:58] LABS: HEMATOCRIT 29.1 % (36.0-48.0); HEMOGLOBIN 9.5 g/dL (12.0-16.0)
[2016-08-31 04:36] LABS: INTERNATIONAL NORMAL RATI 1.4 UNITS (-); PROTIME (NOT ORD) 17.4 SEC (12.0-14.5)
[2016-08-31 04:41] LABS: BASOPHILS 0.3 %; BASOPHILS ABSOLUTE 0.03 10/3/uL (0.0-0.16); EOSINOPHILS 1.2 %; EOSINOPHILS ABSOLUTE 0.12 10/3/uL (0.0-0.53); HEMATOCRIT 28.7 % (36.0-48.0); HEMOGLOBIN 9.3 g/dL (12.0-16.0); IMMATURE GRANULOCYTES 0.2 %; IMMATURE GRANULOCYTES ABSOLUTE 0.02 10/3/uL (0.0-0.11); LYMPHOCYTES 7.3 %; LYMPHOCYTES ABSOLUTE 0.72 10/3/uL (0.67-4.30); MEAN CORPUS HGB CONC 32.4 g/dL (32.0-36.0); MEAN CORPUSCULAR HEMOGLOB 29.6 pg (26.0-34.0); MEAN CORPUSCULAR VOLUME 91.4 fL (80-100); MEAN PLATELET VOLUME 9.8 fL (9.2-13.0); MONOCYTES 7.7 %; MONOCYTES ABSOLUTE 0.76 10/3/uL (0.21-1.20); NEUTROPHILS 83.3 %; NEUTROPHILS ABSOLUTE 8.28 10/3/uL (2.02-8.40); PLATELET COUNT 200 10/3/uL (150-400); RBC DISTRIBUTION WIDTH 16.7 % (12.0-16.0); RED CELL COUNT 3.14 10/6/uL (4.0-5.6)
[2016-08-31 04:42] LABS: MANUAL DIFF NO %; WHITE BLOOD CELLS 9.9 10/3/uL (4.5-10.5)
[2016-08-31 04:43] LABS: BUN (BLOOD UREA NITROGEN) 16 MG/DL (6-23); CALCIUM, SERUM 8.4 MG/DL (8.5-10.4); CHLORIDE, SERUM 99 MMOL/L (96-112); CO2 (CARBON DIOXIDE) 33 MMOL/L (24-34); CREATININE 0.57 MG/DL (0.55-1.02); GFR AFRICAN AMERICAN 97 ML/MIN (>=60); GFR NON AFRICAN AMERICAN 83 ML/MIN (>=60); GLUCOSE, SERUM 125 MG/DL (60-99); SODIUM, SERUM 139 MMOL/L (135-148)
[2016-09-01 06:43] LABS: BASOPHILS 0.2 %; BASOPHILS ABSOLUTE 0.03 10/3/uL (0.0-0.16); EOSINOPHILS 1.4 %; EOSINOPHILS ABSOLUTE 0.17 10/3/uL (0.0-0.53); HEMOGLOBIN 8.3 g/dL (12.0-16.0); IMMATURE GRANULOCYTES 0.3 %; IMMATURE GRANULOCYTES ABSOLUTE 0.04 10/3/uL (0.0-0.11); LYMPHOCYTES 7.2 %; LYMPHOCYTES ABSOLUTE 0.88 10/3/uL (0.67-4.30); MEAN CORPUS HGB CONC 32.4 g/dL (32.0-36.0); MEAN CORPUSCULAR HEMOGLOB 29.7 pg (26.0-34.0); MEAN CORPUSCULAR VOLUME 91.8 fL (80-100); MEAN PLATELET VOLUME 9.5 fL (9.2-13.0); MONOCYTES 7.4 %; MONOCYTES ABSOLUTE 0.91 10/3/uL (0.21-1.20); NEUTROPHILS 83.5 %; NEUTROPHILS ABSOLUTE 10.22 10/3/uL (2.02-8.40); PLATELET COUNT 190 10/3/uL (150-400); RBC DISTRIBUTION WIDTH 16.6 % (12.0-16.0); RED CELL COUNT 2.79 10/6/uL (4.0-5.6); WHITE BLOOD CELLS 12.3 10/3/uL (4.5-10.5)
[2016-09-01 06:45] LABS: HEMATOCRIT 25.6 % (36.0-48.0); MANUAL DIFF NO %
[2016-09-01 06:59] LABS: BUN (BLOOD UREA NITROGEN) 13 MG/DL (6-23); CALCIUM, SERUM 8.5 MG/DL (8.5-10.4); CHLORIDE, SERUM 101 MMOL/L (96-112); CO2 (CARBON DIOXIDE) 33 MMOL/L (24-34); GFR AFRICAN AMERICAN 101 ML/MIN (>=60); GFR NON AFRICAN AMERICAN 87 ML/MIN (>=60); GLUCOSE, SERUM 121 MG/DL (60-99); POTASSIUM, SERUM 3.5 MMOL/L (3.5-5.3); SODIUM, SERUM 139 MMOL/L (135-148)
[2016-09-02 06:22] LABS: BASOPHILS 0.3 %; BASOPHILS ABSOLUTE 0.03 10/3/uL (0.0-0.16); EOSINOPHILS 2.8 %; EOSINOPHILS ABSOLUTE 0.28 10/3/uL (0.0-0.53); HEMATOCRIT 27.5 % (36.0-48.0); HEMOGLOBIN 8.7 g/dL (12.0-16.0); IMMATURE GRANULOCYTES 0.3 %; IMMATURE GRANULOCYTES ABSOLUTE 0.03 10/3/uL (0.0-0.11); LYMPHOCYTES 9.7 %; LYMPHOCYTES ABSOLUTE 0.96 10/3/uL (0.67-4.30); MEAN CORPUS HGB CONC 31.6 g/dL (32.0-36.0); MEAN CORPUSCULAR HEMOGLOB 29.7 pg (26.0-34.0); MEAN CORPUSCULAR VOLUME 93.9 fL (80-100); MEAN PLATELET VOLUME 9.1 fL (9.2-13.0); MONOCYTES 5.6 %; MONOCYTES ABSOLUTE 0.55 10/3/uL (0.21-1.20); NEUTROPHILS 81.3 %; NEUTROPHILS ABSOLUTE 8.04 10/3/uL (2.02-8.40); PLATELET COUNT 226 10/3/uL (150-400); RBC DISTRIBUTION WIDTH 16.1 % (12.0-16.0); RED CELL COUNT 2.93 10/6/uL (4.0-5.6); WHITE BLOOD CELLS 9.9 10/3/uL (4.5-10.5)
[2016-09-02 06:24] LABS: MANUAL DIFF NO %
[2016-09-02 06:29] LABS: BUN (BLOOD UREA NITROGEN) 13 MG/DL (6-23); CALCIUM, SERUM 8.7 MG/DL (8.5-10.4); CHLORIDE, SERUM 100 MMOL/L (96-112); CO2 (CARBON DIOXIDE) 36 MMOL/L (24-34); CREATININE 0.59 MG/DL (0.55-1.02); GFR AFRICAN AMERICAN 96 ML/MIN (>=60); GFR NON AFRICAN AMERICAN 82 ML/MIN (>=60); GLUCOSE, SERUM 125 MG/DL (60-99); POTASSIUM, SERUM 4.2 MMOL/L (3.5-5.3); SODIUM, SERUM 137 MMOL/L (135-148)
[2016-09-03 06:21] LABS: BASOPHILS 0.3 %; BASOPHILS ABSOLUTE 0.02 10/3/uL (0.0-0.16); EOSINOPHILS 3.1 %; EOSINOPHILS ABSOLUTE 0.25 10/3/uL (0.0-0.53); HEMATOCRIT 28.3 % (36.0-48.0); HEMOGLOBIN 8.8 g/dL (12.0-16.0); IMMATURE GRANULOCYTES 0.3 %; IMMATURE GRANULOCYTES ABSOLUTE 0.02 10/3/uL (0.0-0.11); LYMPHOCYTES 10.8 %; LYMPHOCYTES ABSOLUTE 0.86 10/3/uL (0.67-4.30); MANUAL DIFF NO %; MEAN CORPUS HGB CONC 31.1 g/dL (32.0-36.0); MEAN CORPUSCULAR HEMOGLOB 29.1 pg (26.0-34.0); MEAN CORPUSCULAR VOLUME 93.7 fL (80-100); MEAN PLATELET VOLUME 9.2 fL (9.2-13.0); MONOCYTES 6.7 %; MONOCYTES ABSOLUTE 0.53 10/3/uL (0.21-1.20); NEUTROPHILS 78.8 %; NEUTROPHILS ABSOLUTE 6.26 10/3/uL (2.02-8.40); PLATELET COUNT 242 10/3/uL (150-400); RBC DISTRIBUTION WIDTH 15.7 % (12.0-16.0); RED CELL COUNT 3.02 10/6/uL (4.0-5.6); WHITE BLOOD CELLS 7.9 10/3/uL (4.5-10.5)
[2016-09-03 06:47] LABS: FREE T4 1.01 NG/DL (0.76-1.46); ULTRASENSITIVE TSH 7.03 MCIU/ML (0.358-3.740)
[2016-09-04 05:41] LABS: BASOPHILS 0.3 %; BASOPHILS ABSOLUTE 0.02 10/3/uL (0.0-0.16); EOSINOPHILS 4.6 %; EOSINOPHILS ABSOLUTE 0.35 10/3/uL (0.0-0.53); HEMATOCRIT 30.4 % (36.0-48.0); HEMOGLOBIN 9.5 g/dL (12.0-16.0); IMMATURE GRANULOCYTES 0.1 %; IMMATURE GRANULOCYTES ABSOLUTE 0.01 10/3/uL (0.0-0.11); LYMPHOCYTES 16.2 %; LYMPHOCYTES ABSOLUTE 1.22 10/3/uL (0.67-4.30); MEAN CORPUS HGB CONC 31.3 g/dL (32.0-36.0); MEAN CORPUSCULAR HEMOGLOB 29.3 pg (26.0-34.0); MEAN CORPUSCULAR VOLUME 93.8 fL (80-100); MEAN PLATELET VOLUME 9.1 fL (9.2-13.0); MONOCYTES 8.8 %; MONOCYTES ABSOLUTE 0.66 10/3/uL (0.21-1.20); NEUTROPHILS ABSOLUTE 5.28 10/3/uL (2.02-8.40); PLATELET COUNT 284 10/3/uL (150-400); RBC DISTRIBUTION WIDTH 15.6 % (12.0-16.0); RED CELL COUNT 3.24 10/6/uL (4.0-5.6); WHITE BLOOD CELLS 7.5 10/3/uL (4.5-10.5)
[2016-09-04 05:43] LABS: MANUAL DIFF NO %
[2016-09-04 05:52] LABS: ALBUMIN 2.8 G/DL (3.5-5.0); CALCIUM, SERUM 8.3 MG/DL (8.5-10.4); CHLORIDE, SERUM 99 MMOL/L (96-112); CO2 (CARBON DIOXIDE) 34 MMOL/L (24-34); CREATININE 0.53 MG/DL (0.55-1.02); GFR AFRICAN AMERICAN 99 ML/MIN (>=60); GFR NON AFRICAN AMERICAN 85 ML/MIN (>=60); GLUCOSE, SERUM 107 MG/DL (60-99); SODIUM, SERUM 139 MMOL/L (135-148)
[2016-09-04 05:54] LABS: BUN (BLOOD UREA NITROGEN) 9 MG/DL (6-23)
[2016-09-04] MEDS ORDERED: CARDCD240 PO (09:56)
[2016-09-04] MEDS ORDERED: DSS PO (09:57)
[2016-09-04] MEDS ORDERED: PRIN2.5 PO (09:58)
[2016-09-04] MEDS ORDERED: MIRALAX POWDER1 PKT PO (09:58)
[2016-09-04] MEDS ORDERED: L20 PO (10:04)
== END 2016-09-04 13:03 | disposition home or self-care (01) | DRG 393 ==
LOC: ER 01:33 → IMCU 04:16 → 7NO 08-31 17:23
PROVIDERS: Hospitalist; Internal Medicine; Internal Medicine Gastroenterology; Nurse Practitioner Family; Specialist
PROC: 30233N1 Transfusion of Nonautologous Red Blood Cells into Peripheral Vein, Percutaneous Approach (ICD-10-PCS; 2016-08-29)
PROC: 0DBK8ZX Excision of Ascending Colon, Via Natural or Artificial Opening Endoscopic, Diagnostic (ICD-10-PCS; 2016-08-31)
PROC: 0DJ08ZZ Inspection of Upper Intestinal Tract, Via Natural or Artificial Opening Endoscopic (ICD-10-PCS; principal; 2016-08-31 09:00)
PROC: 0DBH8ZX Excision of Cecum, Via Natural or Artificial Opening Endoscopic, Diagnostic (ICD-10-PCS; 2016-08-31 09:00)
DX: K55.9 Vascular disorder of intestine, unspecified (principal); I50.31 Acute diastolic (congestive) heart failure; J96.01 Acute respiratory failure with hypoxia; I24.8 Other forms of acute ischemic heart disease; D62 Acute posthemorrhagic anemia; I48.0 Paroxysmal atrial fibrillation; I11.0 Hypertensive heart disease with heart failure; E03.9 Hypothyroidism, unspecified; M81.0 Age-related osteoporosis without current pathological fracture; Z51.5 Encounter for palliative care; Z79.01 Long term (current) use of anticoagulants
CPT/HCPCS: 36415; 36430; 36600; 71010; 71020; 80048; 80053; 80069; 82607; 82728; 82805; 83540; 83550; 83605; 83615; 83735; 83880; 84132; 84145; 84155; 84165; 84439; 84443; 84484; 85014; 85018; 85025; 85045; 85379; 85610; 85730; 86644; 86645; 86850; 86900; 86901; 86920; 87040; 87641; 88305; 88341; 88342; 93005; 93975; 99285; A9270-GY; C8929; J1940; P9016; Q9957